=== PATIENT | female | born 1975 | race Two or more races ===

== ENCOUNTER 2020-03-10 04:18 | Emergency (ER) | payer OTHER ==
[~2020-03-10] VITALS: Ht 154.9 cm; Wt 90.7 kg
[2020-03-10 04:22] VITALS: BP 148/92
[2020-03-10] MEDS ORDERED: LORazepam 2MG/ML-1ML VIAL IV ONE (05:00)
[2020-03-10 05:55] LABS: Basophils # (auto) 0 10 ^3/uL (0-0.2); Basophils % (auto) 0.5 % (0.0-2.0); Eosinophils # (auto) 0.3 10 ^3/uL (0-0.8); Lymphocytes # (auto) 2.4 10 ^3/uL (0.4-5.4); Monocytes # (auto) 0.6 10 ^3/uL (0-1.3); Red Blood Cells 4.33 10^6/uL (4.0-5.20); White Blood Cell 7.4 10^3/uL (4.4-10.8)
[2020-03-10 05:57] LABS: Eosinophils % (auto) 3.6 % (0.0-7.0); Hematocrit 30.8 % (36.0-46.0); Hemoglobin 9.9 g/dL (12.2-16.2); Lymphocytes % (auto) 32.4 % (10.0-50.0); Mean Corpuscular Hemoglobin 22.8 pg (28.0-32.0); Mean Corpuscular Hgb Conc. 32.1 g/dL (32.0-36.0); Monocytes % (auto) 8.4 % (0.0-12.0); Neutrophils # (auto) 4.1 10 ^3/uL (1.6-8.6); Neutrophils % (auto) 55.1 % (37.0-80.0); Platelet Count (auto) 269 10^3/uL (140-450); Red Cell Distribution Width 17.4 % (11.8-14.3)
[2020-03-10 06:09] LABS: Chloride 108 mmol/L (98-107); Potassium 3.6 mmol/L (3.5-5.1); Sodium 140 mmol/L (136-145)
[2020-03-10 06:11] LABS: INR 0.93 (0.9-1.15)
[2020-03-10 06:19] LABS: Alanine Aminotransferase 12 U/L (13-56); Albumin 3.2 g/dL (3.4-5.0); Alkaline Phosphatase 65 U/L (45-117); Anion Gap 6 (5-15); Aspartate Aminotransferase 11 U/L (15-37); BUN/Creatinine Ratio 30.4; Bilirubin, Total 0.4 mg/dL (0.2-1.0); Blood Urea Nitrogen 14 mg/dL (7-18); Carbon Dioxide 26 mmol/L (21-32); GFR African American 189 mL/min; GFR Non-African American 156 mL/min; Glucose 84 mg/dL (74-106); Total Protein 6.6 g/dL (6.4-8.2)
== END 2020-03-10 08:19 | disposition home or self-care (01) ==
LOC: ER 04:18
DX: F41.9 Anxiety disorder, unspecified (principal); R07.89 Other chest pain
CPT/HCPCS: 36415; 80053; 83880; 84484; 85025; 85610; 85730; 93005; 96374; 99284; J2060

== ENCOUNTER 2022-01-11 03:44 | Emergency (ER) | payer OTHER ==
[~2022-01-11] VITALS: Ht 154.9 cm; Wt 90.5 kg
[2022-01-11 04:13] VITALS: BP 130/97
== END 2022-01-11 18:20 | disposition left against medical advice (07) ==
LOC: ER 03:44
DX: R51.9 Headache, unspecified (principal); R61 Generalized hyperhidrosis; R07.89 Other chest pain; Z53.21 Procedure and treatment not carried out due to patient leaving prior to being seen by health care provider
CPT/HCPCS: 93005